=== PATIENT | male | born 1960 | race Caucasian/White ===

== ENCOUNTER 2017-12-15 01:44 | Inpatient (IN) | payer OTHER ==
[2017-12-15] MEDS ORDERED: NACL 0.9% 1000 ML 1,000 ML IV ONE (03:42)
[2017-12-15 04:10] LABS: Basophils % (Auto) 0.3 % (0.0-1.8); Eosinophils # (Auto) 0.1 K/mm3 (0.0-0.4); Eosinophils % (Auto) 0.7 % (0.0-4.3); Hematocrit 46.4 % (35.5-45.6); Hemoglobin 15.5 gm/dl (11.8-15.2); Lymphocytes # (Auto) 1.8 K/mm3 (1.2-5.4); Lymphocytes % (Auto) 16.8 % (13.4-35.0); Mean Corpuscular HGB Conc 33 % (32-34); Mean Corpuscular Hemoglobin 27 pg (28-32); Mean Corpuscular Volume 82 fl (84-94); Monocytes # (Auto) 0.5 K/mm3 (0.0-0.8); Monocytes % (Auto) 4.9 % (0.0-7.3); Platelet Count 206 K/mm3 (140-440); Red Blood Count 5.64 M/mm3 (3.65-5.03); Red Cell Distribution Width 15.4 % (13.2-15.2)
[2017-12-15 04:44] LABS: Alanine Aminotransferase 47 units/L (7-56); Albumin 4.5 g/dL (3.9-5); BUN/Creatinine Ratio 35; Blood Urea Nitrogen 21 mg/dL (9-20); Calcium 9.1 mg/dL (8.4-10.2); Hemolysis Index 3; Lipase 35 units/L (13-60)
[2017-12-15 07:45] LABS: Bilirubin,Urine NEG (Negative); Blood,Urine NEG (Negative); Color,Urine Yellow (Yellow); Mucus,Urine FEW /HPF; Protein,Urine <15 mg/dL mg/dL (Negative); Urobilinogen,Urine < 2.0 mg/dL (<2.0)
--- NOTE | 2017-12-15 09:09 | Emergency Department Report ---
ED Abdominal Pain HPI - General Chief Complaint: Abdominal Pain Stated Complaint: EMESIS/POSS FOOD POISON Time Seen by Provider: 12/15/17 09:07 Source: patient, family Mode of arrival: Ambulatory Limitations: No Limitations - History of Present Illness Initial Comments: Patient presents to emergency room with his reports that he ate supper about 6:55 PM last night and started having abdominal pain. Patient said his pain 10 out of 10 and crampy/sharp and reports that it feels like it is all over his demand, but more to his upper abdomen. He reports nausea and vomiting since 9:30 PM last night. Denies any fever. He states that he is unable to keep anything down and denies any diarrhea. Denies any blood in his stool or in his vomit. Denies taking any medication. Pain is worse with touch and this , and movements and no alleviating factors. MD Complaint: abdominal pain, other (nausea and vomiting) -: Last night Location: diffuse Radiation: none Migration to: no migration Severity: severe Severity scale (0 -10): 10 Quality: cramping, sharp Consistency: constant Improves With: nothing Worsens With: movement, other (palpation) Context: possible food poisoning Associated Symptoms: nausea, vomiting, anorexia. denies: diarrhea, fever, chills, constipation, dysuria, hematemesis, hematochezia, melena, hematuria, syncope Treatments Prior to Arrival: other (none) - Related Data Home Medications Medication Instructions Recorded Confirmed Last Taken Cyanocobalamin [Vitamin B-12] 1,000 mcg PO DAILY 12/15/17 12/15/17 12/14/17 Multivitamin [Multiple Vitamins] 1 each PO DAILY 12/15/17 12/15/17 12/14/17 Allergies Allergy/AdvReac Type Severity Reaction Status Date / Time No Known Allergies Allergy Verified 12/15/17 09:13 ED Review of Systems ROS: Stated complaint: EMESIS/POSS FOOD POISON Other details as noted in HPI Constitutional: denies: chills, fever Eyes: denies: eye pain, eye discharge, vision change ENT: denies: ear pain, throat pain, congestion Respiratory: denies: cough, shortness of breath, SOB with exertion, SOB at rest , wheezing Cardiovascular: denies: chest pain, palpitations, edema, syncope, paroxysmal nocturnal dyspnea Gastrointestinal: abdominal pain, nausea, vomiting. denies: diarrhea, constipation, hematemesis, melena, hematochezia Genitourinary: denies: urgency, dysuria, hematuria Musculoskeletal: denies: back pain, joint swelling, arthralgia, myalgia Skin: denies: rash, lesions Neurological: denies: headache, weakness, paresthesias ED Past Medical Hx - Past Medical History Previous Medical History?: Yes Additional medical history: MILD MN 3 TO 4 YEARS AGO. - Surgical History Past Surgical History?: No - Family History Family history: hypertension - Social History Smoking Status: Current Some Day Smoker Substance Use Type: None - Medications Home Medications: Home Medications Medication Instructions Recorded Confirmed Last Taken Type Cyanocobalamin [Vitamin B-12] 1,000 mcg PO DAILY 12/15/17 12/15/17 12/14/17 History Multivitamin [Multiple Vitamins] 1 each PO DAILY 12/15/17 12/15/17 12/14/17 History ED Physical Exam - General Limitations: No Limitations General appearance: alert, in no apparent distress - Head Head exam: Present: atraumatic, normocephalic, normal inspection - Eye Eye exam: Present: normal appearance, PERRL, EOMI Pupils: Present: normal accommodation - ENT ENT exam: Present: normal exam, normal orophraynx, mucous membranes moist, TM's normal bilaterally, normal external ear exam - Neck Neck exam: Present: normal inspection, full ROM. Absent: tenderness, lymphadenopathy - Respiratory Respiratory exam: Present: normal lung sounds bilaterally. Absent: respiratory distress, chest wall tenderness - Cardiovascular Cardiovascular Exam: Present: regular rate, normal rhythm, normal heart sounds. Absent: systolic murmur, diastolic murmur - GI/Abdominal GI/Abdominal exam: Present: soft, tenderness, guarding, normal bowel sounds. Absent: distended, rebound, rigid, organomegaly, mass, bruit, pulsatile mass - Extremities Exam Extremities exam: Present: normal inspection, full ROM, normal capillary refill , other (No cce. + 2 pulses in all extremities, no neurovascular compromise). Absent: tenderness, joint swelling, calf tenderness - Back Exam Back exam: Present: normal inspection, full ROM, other (ambulates without any difficulties). Absent: tenderness, CVA tenderness (R), CVA tenderness (L), muscle spasm, paraspinal tenderness, vertebral tenderness, rash noted - Neurological Exam Neurological exam: Present: alert, oriented X3, normal gait - Psychiatric Psychiatric exam: Present: normal affect, normal mood - Skin Skin exam: Present: warm, dry, intact, normal color. Absent: rash ED Course Vital Signs 12/15/17 12/15/17 12/15/17 03:39 10:07 10:21 Temperature 98.3 F Pulse Rate 60 Respiratory 20 17 16 Rate Blood Pressure 152/102 Blood Pressure [Right] O2 Sat by Pulse 99 Oximetry 12/15/17 12/15/17 10:27 13:15 Temperature 98.3 F 98.4 F Pulse Rate 63 66 Respiratory 16 16 Rate Blood Pressure Blood Pressure 133/84 136/80 [Right] O2 Sat by Pulse 98 100 Oximetry - Reevaluation(s) Reevaluation #1: 12/15/17 09:46 Patient was given IV fluid normal saline 1 L was infusing, morphine 4 mg IV, Zofran 8 mg IV. Initial abdominal exam with generalized tenderness with guarding but no after pain medication pain is located to right upper quadrant to mid quadrant and he said he is feeling better. Nausea has been relieved. Reevaluation #2: 12/15/17 15:06 Levaquin 750 mg IV and Flagyl 500 mg IV added to patient education regime. He started being transported to room 309 ED Medical Decision Making - Lab Data Result diagrams: 12/15/17 03:47 12/15/17 03:47 Lab Results 12/15/17 12/15/17 12/15/17 Range/Units 03:47 03:47 06:08 WBC 10.6 (4.5-11.0) K/mm3 RBC 5.64 H (3.65-5.03) M/mm3 Hgb 15.5 H (11.8-15.2) gm/dl Hct 46.4 H (35.5-45.6) % MCV 82 L (84-94) fl MCH 27 L (28-32) pg MCHC 33 (32-34) % RDW 15.4 H (13.2-15.2) % Plt Count 206 (140-440) K/mm3 Lymph % (Auto) 16.8 (13.4-35.0) % Pope % (Auto) 4.9 (0.0-7.3) % Eos % (Auto) 0.7 (0.0-4.3) % Baso % (Auto) 0.3 (0.0-1.8) % Lymph # 1.8 (1.2-5.4) K/mm3 Pope # 0.5 (0.0-0.8) K/mm3 Eos # 0.1 (0.0-0.4) K/mm3 Baso # 0.0 (0.0-0.1) K/mm3 Seg Neutrophils % 77.3 H (40.0-70.0) % Seg Neutrophils # 8.2 H (1.8-7.7) K/mm3 Sodium 140 (137-145) mmol/L Potassium 3.8 (3.6-5.0) mmol/L Chloride 99.8 (98-107) mmol/L Carbon Dioxide 26 (22-30) mmol/L Anion Gap 18 mmol/L BUN 21 H (9-20) mg/dL Creatinine 0.6 L (0.8-1.5) mg/dL Estimated GFR > 60 ml/min BUN/Creatinine Ratio 35 % Glucose 146 H (75-100) mg/dL Calcium 9.1 (8.4-10.2) mg/dL Total Bilirubin 0.70 (0.1-1.2) mg/dL AST 32 (5-40) units/L ALT 47 (7-56) units/L Alkaline Phosphatase 119 (35-129) units/L Total Protein 7.9 (6.3-8.2) g/dL Albumin 4.5 (3.9-5) g/dL Albumin/Globulin Ratio 1.3 % Lipase 35 (13-60) units/L Urine Color Yellow (Yellow) Urine Turbidity Clear (Clear) Urine pH 6.0 (5.0-7.0) Ur Specific [place] 1.019 (1.003-1.030) Urine Protein <15 mg/dl (Negative) mg/dL Urine Glucose (UA) Neg (Negative) mg/dL Urine Ketones Neg (Negative) mg/dL Urine Blood Neg (Negative) Urine Nitrite Neg (Negative) Urine Bilirubin Neg (Negative) Urine Urobilinogen < 2.0 (<2.0) mg/dL Ur Leukocyte Esterase Neg (Negative) Urine WBC (Auto) 1.0 (0.0-6.0) /HPF Urine RBC (Auto) 4.0 (0.0-6.0) /HPF Urine Mucus Few /HPF - Radiology Data Radiology results: report reviewed CT of the abdomen and pelvis with IV contrast dictated by radiologist and reported myself. Please see report below. Patient: KATIE FREGOSO MR#: [id number] : 1960 Acct:[id number] Age/Sex: 56 / M ADM Date: 12/15/17 Loc: ED Attending Dr: Ordering Physician: SHELLEY MARCOS Date of Service: 12/15/17 Procedure(s): CT abdomen pelvis w con Accession Number(s): [id number] cc: SHELLEY MARCOS CT ABDOMEN PELVIS WITH CONTRAST: HISTORY: Abdominal pain, nausea and vomiting. COMPARISON: none. TECHNIQUE: Helical CT in 1.25mm intervals following IV contrast. Sagittal and coronal reconstructions. FINDINGS: Lung bases: Mild hypoventilatory changes are noted in the lung bases. Normal heart size. Liver: Normal. Biliary system: The gallbladder appears mildly dilated but there is no evidence for calcified gallstones, wall thickening or surrounding fluid. The CBD and intrahepatic ducts are within normal limits. Correlate for biliary symptoms. Pancreas: Normal. Spleen: The spleen is normal size and contour. A 2.6 cm splenic hemangioma is suspected in the anterior tip of the spleen. Kidneys/ureters/bladder: Within normal limits. 2 cm simple cyst in the superior left kidney is noted. Adrenal glands: Normal. Aorta: Normal. Intestines: Normal. Appendix: Normal. Ascites: None. Adenopathy: None. Musculoskeletal: Mild thoracolumbar spondylosis. No fracture or suspicious bony lesion. IMPRESSION: Mildly dilated gallbladder as described above. Correlate for biliary symptoms. 2 cm left renal cyst. 2.6 cm splenic hemangioma. Transcribed By: TTR Dictated By: JUAN ALBERTO RUEDA JR, MD Electronically Authenticated By: JUAN ALBERTO RUEDA JR, MD Signed Date/Time: 12/15/17 1046 DD/ 1043 TD/TT: 12/15/17 1046 Patient: KATIE FREGOSO MR#: [id number] : 1960 Acct:[id number] Age/Sex: 56 / M ADM Date: 12/15/17 Loc: ED Attending Dr: Ordering Physician: SHELLEY MACROS Date of Service: 12/15/17 Procedure(s): US abdomen limited Accession Number(s): [id number] cc: SHELLEY MARCOS ULTRASOUND ABDOMEN LIMITED: TECHNIQUE: Transabdominal ultrasound with color Doppler interrogation. HISTORY: Abdominal pain, nausea and vomiting. COMPARISON: none. FINDINGS: LIVER: Normal. BILIARY SYSTEM: The gallbladder is mildly dilated and contains multiple small and large gallstones measuring up to 2.3 cm in diameter. A small amount of sludge is also identified. The gallbladder wall measures 2 mm. The CBD measures 4 mm. PANCREAS: Poorly visualized secondary to bowel gas. RIGHT KIDNEY: Normal. PROXIMAL AORTA: Normal. ASCITES: None. IMPRESSION: Cholelithiasis. The gallbladder appears mildly dilated. Early acute cholecystitis is difficult to exclude. Please correlate with the patient. Transcribed By: TTR Dictated By: JUAN ALBERTO RUEDA JR, MD Electronically Authenticated By: JUAN ALBERTO RUEDA JR, MD Signed Date/Time: 12/15/171205 DD/ 04 TD/TT: 12/15/171205 - Medical Decision Making This 56-year-old male presented to the emergency room with his family member reports that he has been having in nausea vomiting abdominal pain that feels like it is all over his abdomen but reports that its worst is upper abdomen. He denies any fever or chills. Denies any urinary burning and frequency urgency. This started after he ate. He said he cannot keep any thing down and his pain is 10/10. He is here to be examined. Patient was seen and examined by myself. Physical exam is normal except he has tenderness to palpate to upper abdomen mostly but he reports pain with palpate to mid abdomen and lower abdomen. He was noted to be having nausea and vomiting. Positive guardian without any rebound. Normal bowel sounds. Patient without signs of stable he is afebrile. He had CBC which shows normal white count and CMP stable. Urinalysis and lipase stable. Patient had CT scan of the abdomen and pelvis with IV contrast which was dictated by radiologist and report reviewed by myself. CT scan shows mildly dilated gallbladder, splenic hemangioma and left renal cyst otherwise normal. I discussed this case with Dr. Hamilton and he reviewed the labs and CT scan and ultrasound of right upper quadrant ordered and showed patient with gallstones and mild cholecystitis. Patient was given normal saline 1 L in the ER Patient abdominal pain relief with morphine 4 mg IV and his nausea relieved with Zofran 8 mg IV followed by another 4 mg IV but after reevaluation he still had tenderness that was pinpoint to right upper quadrant therefore ultrasound was ordered. This is dictated by radiologist. After speaking with attending physician, I spoke with surgeon Dr. Lopez who wanted patient to be admitted. She wanted hospitalist admit patient and to consult her. CT, ultrasound findings and laboratory findings as discussed with patient along with diagnosis and treatment plan and patient and family member agrees. It was decided the patient will be admitted to surgical floor and Dr. Lopez will see patient. I called Dr. Traore who agrees to admit patient. ED breech was started and patient started on D5 half-normal saline at 125 mL an hour. Patient transferred to room 39 in stable condition. Pain is much better after pain medication and nausea has resolved. - Differential Diagnosis bowel obstruction,GBD, pancreatic versus disease abd. mass, enteritis Critical care attestation.: If time is entered above; I have spent that time in minutes in the direct care of this critically ill patient, excluding procedure time. ED Disposition Clinical Impression: Biliary colic Cholecystitis with cholelithiasis Qualifiers: Cholelithiasis location: gallbladder and bile duct Cholecystitis acuity: acute Biliary obstruction: without biliary obstruction Qualified Code(s): K80.62 - Calculus of gallbladder and bile duct with acute cholecystitis without obstruction Abdominal pain Qualifiers: Abdominal location: upper abdomen, unspecified Qualified Code(s): R10.10 - Upper abdominal pain, unspecified Nausea and vomiting Qualifiers: Vomiting type: unspecified Vomiting Intractability: non-intractable Qualified Code(s): R11.2 - Nausea with vomiting, unspecified Disposition: DC-09 OP ADMIT IP TO THIS HOSP Is pt being admited?: Yes Does the pt Need Aspirin: No Condition: Stable
[2017-12-15] MEDS ORDERED: ZOFRAN IV ONE ×2 (09:13→12:56)
[2017-12-15] MEDS ORDERED: MORPHINE IV ONE (09:13)
[2017-12-15] MEDS ORDERED: NACL 0.9% 1000 ML 1,000 ML ONE (09:52)
--- NOTE | 2017-12-15 10:52 | Cat Scan Report ---
CT ABDOMEN PELVIS WITH CONTRAST: HISTORY: Abdominal pain, nausea and vomiting. COMPARISON: none. TECHNIQUE: Helical CT in 1.25mm intervals following IV contrast. Sagittal and coronal reconstructions. FINDINGS: Lung bases: Mild hypoventilatory changes are noted in the lung bases. Normal heart size. Liver: Normal. Biliary system: The gallbladder appears mildly dilated but there is no evidence for calcified gallstones, wall thickening or surrounding fluid. The CBD and intrahepatic ducts are within normal limits. Correlate for biliary symptoms. Pancreas: Normal. Spleen: The spleen is normal size and contour. A 2.6 cm splenic hemangioma is suspected in the anterior tip of the spleen. Kidneys/ureters/bladder: Within normal limits. 2 cm simple cyst in the superior left kidney is noted. Adrenal glands: Normal. Aorta: Normal. Intestines: Normal. Appendix: Normal. Ascites: None. Adenopathy: None. Musculoskeletal: Mild thoracolumbar spondylosis. No fracture or suspicious bony lesion. IMPRESSION: Mildly dilated gallbladder as described above. Correlate for biliary symptoms. 2 cm left renal cyst. 2.6 cm splenic hemangioma.
--- NOTE | 2017-12-15 12:13 | Ultrasound Report ---
ULTRASOUND ABDOMEN LIMITED: TECHNIQUE: Transabdominal ultrasound with color Doppler interrogation. HISTORY: Abdominal pain, nausea and vomiting. COMPARISON: none. FINDINGS: LIVER: Normal. BILIARY SYSTEM: The gallbladder is mildly dilated and contains multiple small and large gallstones measuring up to 2.3 cm in diameter. A small amount of sludge is also identified. The gallbladder wall measures 2 mm. The CBD measures 4 mm. PANCREAS: Poorly visualized secondary to bowel gas. RIGHT KIDNEY: Normal. PROXIMAL AORTA: Normal. ASCITES: None. IMPRESSION: Cholelithiasis. The gallbladder appears mildly dilated. Early acute cholecystitis is difficult to exclude. Please correlate with the patient.
[2017-12-15] MEDS ORDERED: LEVAQUIN 750MG/150ML 750 MG/150 ML BAG IV SCH (15:00)
[2017-12-15] MEDS ORDERED: LEVAQUIN 750MG/150ML 750 MG/150 ML BAG IV ONE (15:02)
[2017-12-15] MEDS ORDERED: FLAGYL 500 MG/100 ML 500 MG/100 ML BAG IV ONE (15:04)
[2017-12-15] MEDS: D5/0.45NS 1,000 ML IV SCH ×2 (16:26→21:08)
--- NOTE | 2017-12-15 16:26 | Consultation ---
History of Present Illness Consult date: 12/15/17 Chief complaint: abdominal pain - History of present illness History of present illness: 56 yo M with hx of AR 7 years ago presents to hospital with one day history of epigastric abdominal pain, n/v. The pain is localized and does not radiate. It has improved since being given IV pain meds in the ER. He states it is sharp and moderate in severity. He has had pain like this about 2 weeks ago which resolved on its own. He states he ate tripe for lunch and seafood for dinner and the pain started shortly thereafter. This was associated with nonbloody/ nonbilious emesis multiple times. No f/c, cp, sob, diarrhea. He works doing heavy lifting and denies chest pain with activity. He can walk long distance without pain. Past History Past Medical History: acute AR (7 years ago) Past Surgical History: Other (toe surgery) Social history: smoking (2-3 times per month). denies: alcohol abuse, prescription drug abuse Family history: no significant family history Medications and Allergies Allergies Allergy/AdvReac Type Severity Reaction Status Date / Time No Known Allergies Allergy Verified 12/15/17 09:13 Home Medications Medication Instructions Recorded Confirmed Last Taken Type Cyanocobalamin [Vitamin B-12] 1,000 mcg PO DAILY 12/15/17 12/15/17 12/14/17 History Multivitamin [Multiple Vitamins] 1 each PO DAILY 12/15/17 12/15/17 12/14/17 History Active Meds: Active Medications Dextrose/Sodium Chloride (D5/0.45ns) 1,000 mls @ 125 mls/hr IV DIRECT KARINE Levofloxacin/Dextrose (Levaquin 750mg/150ml) 750 mg in 150 mls @ 100 mls/hr IV ONCE ONE; Protocol Stop: 12/15/17 16:31 Morphine Sulfate (Morphine) 2 mg IV Q4H PRN PRN Reason: Pain, Moderate (4-6) Review of Systems All systems: negative (10 pt ROS performed and negative except for that listed in HPI) Exam Vital Signs Temp Pulse Resp BP Pulse Ox 98.3 F 60 20 152/102 99 12/15/17 03:39 12/15/17 03:39 12/15/17 03:39 12/15/17 03:39 12/15/17 03:39 Narrative exam: Gen: AAOx3. NAD ENT: no scleral icterus or conjunctival pallor CV: s1, S2+ Resp: Expiratory wheezes on left. Abd: soft, ND, mild TTP in epigastrum. No r/r/g Ext: no c/c/e Results - Labs 12/15/17 03:47 12/15/17 03:47 Abnormal lab results 12/15/17 12/15/17 Range/Units 03:47 03:47 RBC 5.64 H (3.65-5.03) M/mm3 Hgb 15.5 H (11.8-15.2) gm/dl Hct 46.4 H (35.5-45.6) % MCV 82 L (84-94) fl MCH 27 L (28-32) pg RDW 15.4 H (13.2-15.2) % Seg Neutrophils % 77.3 H (40.0-70.0) % Seg Neutrophils # 8.2 H (1.8-7.7) K/mm3 BUN 21 H (9-20) mg/dL Creatinine 0.6 L (0.8-1.5) mg/dL Glucose 146 H (75-100) mg/dL Diabetes panel 12/15/17 Range/Units 03:47 Sodium 140 (137-145) mmol/L Potassium 3.8 (3.6-5.0) mmol/L Chloride 99.8 (98-107) mmol/L Carbon Dioxide 26 (22-30) mmol/L BUN 21 H (9-20) mg/dL Creatinine 0.6 L (0.8-1.5) mg/dL Glucose 146 H (75-100) mg/dL Calcium 9.1 (8.4-10.2) mg/dL AST 32 (5-40) units/L ALT 47 (7-56) units/L Alkaline Phosphatase 119 (35-129) units/L Total Protein 7.9 (6.3-8.2) g/dL Albumin 4.5 (3.9-5) g/dL Calcium panel 12/15/17 Range/Units 03:47 Calcium 9.1 (8.4-10.2) mg/dL Albumin 4.5 (3.9-5) g/dL Pituitary panel 12/15/17 Range/Units 03:47 Sodium 140 (137-145) mmol/L Potassium 3.8 (3.6-5.0) mmol/L Chloride 99.8 (98-107) mmol/L Carbon Dioxide 26 (22-30) mmol/L BUN 21 H (9-20) mg/dL Creatinine 0.6 L (0.8-1.5) mg/dL Glucose 146 H (75-100) mg/dL Calcium 9.1 (8.4-10.2) mg/dL Adrenal panel 12/15/17 Range/Units 03:47 Sodium 140 (137-145) mmol/L Potassium 3.8 (3.6-5.0) mmol/L Chloride 99.8 (98-107) mmol/L Carbon Dioxide 26 (22-30) mmol/L BUN 21 H (9-20) mg/dL Creatinine 0.6 L (0.8-1.5) mg/dL Glucose 146 H (75-100) mg/dL Calcium 9.1 (8.4-10.2) mg/dL Total Bilirubin 0.70 (0.1-1.2) mg/dL AST 32 (5-40) units/L ALT 47 (7-56) units/L Alkaline Phosphatase 119 (35-129) units/L Total Protein 7.9 (6.3-8.2) g/dL Albumin 4.5 (3.9-5) g/dL - Imaging CT scan - abdomen: report reviewed, image reviewed CT scan - pelvis: report reviewed, image reviewed US - abdomen: report reviewed, image reviewed Assessment and Plan 56 yo M with 1. symptomatic cholelithiasis 2. dehydration Plan: 1. Clear liquids, NPO p MN 2. IVF 3. prn pain and nausea control 4. DVT ppx 5. OOB/ambulate 6. CXR preop 7. plan for cholecystectomy tomorrow 12/16/17. All risks, benefits, and alternatives to laparoscopic, possible open cholecystectomy, possible cholangiogram discussed with the patient and consent obtained. All questions answered. Thank you for this consultation, please call with questions or concerns.
--- NOTE | 2017-12-15 17:38 | Anesthesia Consultation ---
Anesthesia Consult and Med Hx Date of service: 12/16/17 - Airway Anesthetic Teeth Evaluation: Poor (multiple missing teeth; denies loose teeth), Dentures (upper) ROM Head & Neck: Adequate Mental/Hyoid Distance: Adequate Mallampati Class: Class III Intubation Access Assessment: Possibly Difficult - Pulmonary Exam CTA: Yes - Cardiac Exam Cardiac Exam: RRR - Pre-Operative Health Status ASA Pre-Surgery Classification: ASA2 Proposed Anesthetic Plan: General - Pulmonary Hx Smoking: Yes (3-4 cig per month) Hx Asthma: No Hx Respiratory Symptoms: No SOB: No - Cardiovascular System Hx Hypertension: No Hx Heart Attack/AMI: Yes (7-8yrs ago, no stents. Currently >4mets exercise tolerance) Hx Angina: No - Central Nervous System Hx Neuromuscular Disorder: No Hx Seizures: No CVA: No - Gastrointestinal Hx Gastroesophageal Reflux Disease: No - Endocrine Hx Renal Disease: No Hx Liver Disease: Yes (cholecystitis) Hx Insulin Dependent Diabetes: No Hx Non-Insulin Dependent Diabetes: No Hx Thyroid Disease: No - Hematic Hx Anemia: No
[2017-12-15] MEDS: MORPHINE IV PRN (20:31)
[2017-12-16] MEDS: MORPHINE IV PRN ×3 (00:28→18:17)
[2017-12-16] MEDS: D5/0.45NS 1,000 ML IV SCH ×2 (04:36→22:26)
[2017-12-16] MEDS ORDERED: ANCEF/STERILE WATER 2 GM/20 ML 2 GM/20 ML SYRINGE IV SCH (06:00)
[2017-12-16] MEDS ORDERED: FLAGYL 500 MG/100 ML 500 MG/100 ML BAG IV SCH (06:00)
--- NOTE | 2017-12-16 06:20 | Event Note ---
Date: 12/15/17 See H/p in reports Symptomatic Cholelithiasis For cholecystectomy in AM
--- NOTE | 2017-12-16 08:14 | History and Physical Report ---
CHIEF COMPLAINT: Acute abdominal pain for 2 weeks, intermittent in nature. HISTORY OF PRESENT ILLNESS: A 56-year-old male with history of coronary artery disease and CT 7 years ago, presents with 1-day history of severe abdominal pain located to the epigastric and right upper quadrant associated with nausea and vomiting a couple of times. The patient had similar pain about 2 weeks ago, which resolved on its own. Pain is sharp and intermittent, associated with nausea. The patient ate seafood for dinner and pain started shortly after. Nonbilious vomiting. No diarrhea. The pain is about 8 on a scale of 1-10. PAST MEDICAL HISTORY: Acute CT 7 years ago. PAST SURGICAL HISTORY: ____ surgery. SOCIAL HISTORY: Smokes occasionally. No alcohol or recreational drugs. FAMILY HISTORY: No significant family history. CURRENT MEDICATIONS: None. REVIEW OF SYSTEMS: Significant for right upper quadrant and epigastric pain associated with nausea and vomiting. Otherwise, review of systems negative. PHYSICAL EXAMINATION: GENERAL: Middle-aged male, cooperative during examination. VITAL SIGNS: Blood pressure is 116/76. Temperature is 98.5. Pulse is 73. Respirations are 17. HEENT: Unremarkable. Pupils equal and reactive. NECK: Supple, no lymphadenopathy, no thyromegaly. LUNGS: Clear to auscultation and percussion. Good air entry. CARDIOVASCULAR SYSTEM: S1, S2 heard. No gallop, no murmur, no rub. Apical impulse in left fifth intercostal space and midclavicular line. ABDOMEN: Right upper quadrant tenderness present. No guarding, no rigidity. Bowel sounds are normal. EXTREMITIES: Good pedal pulses. No pedal edema. CENTRAL NERVOUS SYSTEM: Alert and oriented x 4, nonfocal exam. SKIN: Normal. LABORATORY DATA: Significant for normal white count of 10,600, hemoglobin of 15.5, hematocrit of 46.4, platelet count of 206,000. Electrolytes are normal. BUN and creatinine is 21 and 0.6, glucose is 146. Urine is negative. LFTs are normal. Right upper quadrant ultrasound shows cholelithiasis, gallbladder appears mildly dilated, early acute cholecystitis. It is difficult to exclude. DIAGNOSTIC DATA: CT of the abdomen shows mildly dilated gallbladder, 2 cm left renal cyst and 2.[address] report shows no evidence for calcified gallstones, but wall thickening is present. ASSESSMENT AND PLAN: 1. Cholelithiasis, which is symptomatic. Surgical consult requested. The patient to get a cholecystectomy in the morning. Appreciate surgical consult. IV fluids. Keep the patient n.p.o. The patient is medically cleared for surgery. 2. Coronary artery disease, stable. No evidence for acute myocardial infarction. Aspirin after surgery. 3. Deep venous thrombosis prophylaxis, Lovenox 40 mg subcutaneous daily. JOB# [id number] VSEric/NTS
[2017-12-16] MEDS ORDERED: ceFAZolin 2 GM in NACL 0.9% 100 ML IV ONE ×2 (09:00→13:00)
[2017-12-16] MEDS ORDERED: LACTATED RINGERS 1,000 ML IV SCH (10:00)
[2017-12-16] MEDS ORDERED: VERSED IV NR (10:00)
--- NOTE | 2017-12-16 10:02 | XRay Report ---
AP CHEST: HISTORY: Preop AP view of the chest demonstrates a normal mediastinal and cardiac contour with clear lungs and normal bony and soft tissue structures. IMPRESSION: No acute cardiopulmonary process.
[2017-12-16] MEDS ORDERED: TORADOL ONE (11:00)
[2017-12-16] MEDS ORDERED: BLOXIVERZ ONE (11:00)
[2017-12-16] MEDS ORDERED: XYLOCAINE MPF 2% ONE (11:00)
[2017-12-16] MEDS ORDERED: ROBINUL ONE (11:00)
[2017-12-16] MEDS ORDERED: XYLOCAINE 1% 20 mL ONE (11:39)
[2017-12-16] MEDS ORDERED: MARCAINE 0.5% 30 ML INFILTRATI ONE (11:39)
[2017-12-16] MEDS ORDERED: SUBLIMAZE ONE (11:41)
[2017-12-16] MEDS ORDERED: ZOFRAN ONE (11:41)
[2017-12-16] MEDS ORDERED: ZEMURON IV ONE (11:41)
[2017-12-16] MEDS ORDERED: DECADRON ONE (11:41)
[2017-12-16] MEDS ORDERED: DIPRIVAN 10 MG/ML IV ONE (11:42)
[2017-12-16] MEDS ORDERED: VERSED ONE (13:27)
[2017-12-16] MEDS ORDERED: ZOFRAN IV PRN ×2 (13:29→18:05)
--- NOTE | 2017-12-16 13:30 | Post Anesthesia Evaluation ---
- Post Anesthesia Evaluation Airway Patent: Yes Stable Respiratory Function: Yes Nausea/Vomiting: No Temp > 96.8F: Yes Pain Manageable: Yes Adequeate Hydration: Yes Anesthesia Complications: No
--- NOTE | 2017-12-16 13:30 | Anesthesia Day of Surgery ---
Anesthesia Day of Surgery - Day of Surgery Patient Examined: Yes Patient H&P Reviewed: Yes Patient is NPO: Yes
[2017-12-16] MEDS ORDERED: PERCOCET 5/325 PO PRN (13:34)
--- NOTE | 2017-12-16 13:34 | Post Operative Note ---
Date of procedure: 12/16/17 Pre-op diagnosis: symptomatic cholelithiais Post-op diagnosis: other (chronic cholecystitis) Findings: bile filled gallbladder with thickened wall Procedure: laparoscopic cholecystectomy Anesthesia: YANIRAA, local Surgeon: SAMIRA NEWBY Estimated blood loss: minimal Pathology: list (gallbladder) Specimen disposition: to lab Condition: stable Disposition: PACU
[2017-12-16] MEDS ORDERED: NACL 0.9% IR ONE (13:50)
[2017-12-16] MEDS ORDERED: XYLOCAINE 1% 20 mL INFILTRATI ONE (13:50)
[2017-12-16] MEDS ORDERED: MARCAINE 0.5% INFILTRATI ONE (13:50)
[2017-12-16] MEDS: DILAUDID IV PRN ×3 (14:14→22:11)
--- NOTE | 2017-12-16 14:43 | Operative Report ---
Operative Report Operative Report: Date of procedure: 12/16/17 Pre-op diagnosis: symptomatic cholelithiais Post-op diagnosis: other (chronic cholecystitis) Findings: bile filled gallbladder with thickened wall Procedure: laparoscopic cholecystectomy Anesthesia: AMBERLY, local Surgeon: SAMIRA NEWBY Estimated blood loss: minimal Pathology: list (gallbladder) Specimen disposition: to lab Condition: stable Disposition: PACU HPI an indication: 56 yo M who presented to the hospital with complaints of severe epigastric quadrant abdominal pain. He was found to have cholelithiasis imaging. The patient was treated in the ER with pain medications but his pain persisted. He was admitted to the hospital with prn IV pain control, IVF. The patient was then consented for a laparoscopic possible open cholecystectomy. All risks, benefits, and alternatives to surgery were discussed and questions answered. Procedure in detail: The patient was identified in the preoperative area and taken back to the operating room, placed on the operating room table in supine position. After anesthesia was induced, the abdomen was prepped and draped in usual sterile fashion and timeout was performed. Local anesthetic was infiltrated into all of the skin incision sites. Using a 11 blade a supraumbilical incision was made and through this a Veress needle was used to insufflate the abdomen. The position of the veress needle was confirmed with the saline drop test and the abdomen was then insufflated to 15 mmHg. The veress needle was then removed and a 5 mm trocar placed using Optiview trocar. The abdomen was then inspected and there was no underlying injury to any of the abdominal contents. An additional 12 mm subxyphoid port, and 2, 5mm RUQ ports were then placed under direct visualization. The patient was then placed into reverse Trendelberg and tilted to the left. The gallbladder was visualized and was very distended and could not be grasped. The gallbladder was decompressed using a laparoscopic aspiration needle and a 60 cc syringe. Approximately 120cc of green bile was aspirated. The gallbladder was then grasped and lifted cephalad. The omental adhesions and peritoneum was taken down bluntly and using electrocautery with great care. The cystic duct and artery were then carefully dissected and the critical view obtained, and the cystic duct and artery were the only two structures seen entering the gallbladder. Four clips were then placed on the proximal aspect of the cystic duct and one clip distally, and 2 clips on the cystic artery proximally and one distal. The cystic duct and cystic artery were then transected in between the clips. The gallbladder was dissected off the liver bed using hook electrocautery. The gallbladder was placed into a Endo Catch bag and removed from the abdomen via the 12mm port. The gallbladder fossa was then inspected and there was no identifiable bleeding or bile leakage. Hemostasis was ensured. The clips on the cystic duct and artery were visualized and intact. The 12 mm port fascia was closed with 2, interrupted 0 Vicryl sutures using the Mauro Porter device. The remaining ports were removed under direct visualization. Skin incisions were closed with 4-0 Monocryl subcuticular stitches and skin glue. All skin incisions were once again infiltrated with local anesthetic. At the end case all sponge, instrument, sharp counts were correct 2. The patient was awoken from anesthesia, extubated, taken to PACU in stable condition.
--- NOTE | 2017-12-16 16:40 | Progress Note ---
Hospitalist Physical - Physical exam Narrative exam: GEN:Not in acute distress,obese HEENT: Normocephalic, atraumatic, Neck: supple, No JVD Lungs:Clear to auscultation bilaterally, no crackles, no wheeze Heart:S1 and S2 reg, no murmurs, rubs or gallop Abd:soft, NT, non-distended, Normal BS Ext: No edema, clubbing or cyanosis Neuro:Awake,alert,oriented x 3, no focal neurological signs Psych: Normal mood - Constitutional Vitals: Temp Pulse Resp BP Pulse Ox 98.5 F 56 L 16 116/76 100 12/16/17 14:58 12/16/17 14:58 12/16/17 14:58 12/16/17 14:58 12/16/17 14:58 Results - Labs CBC & Chem 7: 12/15/17 03:47 12/15/17 03:47 Labs: Laboratory Last Values WBC 10.6 K/mm3 (4.5-11.0) 12/15/17 03:47 RBC 5.64 M/mm3 (3.65-5.03) H 12/15/17 03:47 Hgb 15.5 gm/dl (11.8-15.2) H 12/15/17 03:47 Hct 46.4 % (35.5-45.6) H 12/15/17 03:47 MCV 82 fl (84-94) L 12/15/17 03:47 MCH 27 pg (28-32) L 12/15/17 03:47 MCHC 33 % (32-34) 12/15/17 03:47 RDW 15.4 % (13.2-15.2) H 12/15/17 03:47 Plt Count 206 K/mm3 (140-440) 12/15/17 03:47 Lymph % (Auto) 16.8 % (13.4-35.0) 12/15/17 03:47 [place] % (Auto) 4.9 % (0.0-7.3) 12/15/17 03:47 Eos % (Auto) 0.7 % (0.0-4.3) 12/15/17 03:47 Baso % (Auto) 0.3 % (0.0-1.8) 12/15/17 03:47 Lymph # 1.8 K/mm3 (1.2-5.4) 12/15/17 03:47 [place] # 0.5 K/mm3 (0.0-0.8) 12/15/17 03:47 Eos # 0.1 K/mm3 (0.0-0.4) 12/15/17 03:47 Baso # 0.0 K/mm3 (0.0-0.1) 12/15/17 03:47 Seg Neutrophils % 77.3 % (40.0-70.0) H 12/15/17 03:47 Seg Neutrophils # 8.2 K/mm3 (1.8-7.7) H 12/15/17 03:47 Sodium 140 mmol/L (137-145) 12/15/17 03:47 Potassium 3.8 mmol/L (3.6-5.0) 12/15/17 03:47 Chloride 99.8 mmol/L (98-107) 12/15/17 03:47 Carbon Dioxide 26 mmol/L (22-30) 12/15/17 03:47 Anion Gap 18 mmol/L 12/15/17 03:47 BUN 21 mg/dL (9-20) H 12/15/17 03:47 Creatinine 0.6 mg/dL (0.8-1.5) L 12/15/17 03:47 Estimated GFR > 60 ml/min 12/15/17 03:47 BUN/Creatinine Ratio 35 % 12/15/17 03:47 Glucose 146 mg/dL (75-100) H 12/15/17 03:47 Calcium 9.1 mg/dL (8.4-10.2) 12/15/17 03:47 Total Bilirubin 0.70 mg/dL (0.1-1.2) 12/15/17 03:47 AST 32 units/L (5-40) 12/15/17 03:47 ALT 47 units/L (7-56) 12/15/17 03:47 Alkaline Phosphatase 119 units/L (35-129) 12/15/17 03:47 Total Protein 7.9 g/dL (6.3-8.2) 12/15/17 03:47 Albumin 4.5 g/dL (3.9-5) 12/15/17 03:47 Albumin/Globulin Ratio 1.3 % 12/15/17 03:47 Lipase 35 units/L (13-60) 12/15/17 03:47 Urine Color Yellow (Yellow) 12/15/17 06:08 Urine Turbidity Clear (Clear) 12/15/17 06:08 Urine pH 6.0 (5.0-7.0) 12/15/17 06:08 Ur Specific [place] 1.019 (1.003-1.030) 12/15/17 06:08 Urine Protein <15 mg/dl mg/dL (Negative) 12/15/17 06:08 Urine Glucose (UA) Neg mg/dL (Negative) 12/15/17 06:08 Urine Ketones Neg mg/dL (Negative) 12/15/17 06:08 Urine Blood Neg (Negative) 12/15/17 06:08 Urine Nitrite Neg (Negative) 12/15/17 06:08 Urine Bilirubin Neg (Negative) 12/15/17 06:08 Urine Urobilinogen < 2.0 mg/dL (<2.0) 12/15/17 06:08 Ur Leukocyte Esterase Neg (Negative) 12/15/17 06:08 Urine WBC (Auto) 1.0 /HPF (0.0-6.0) 12/15/17 06:08 Urine RBC (Auto) 4.0 /HPF (0.0-6.0) 12/15/17 06:08 Urine Mucus Few /HPF 12/15/17 06:08
--- NOTE | 2017-12-16 16:44 | Discharge Summary ---
<HOWARD NAGEL - Last Filed: 12/16/17 16:40> Providers - Providers Date of Admission: 12/15/17 12:52 Date of discharge: 12/16/17 Attending physician: HOWARD NAGEL 12/15/17 12:57 Consult to Physician [CONS] Stat Comment: Consulting Provider: SAMIRA NEWBY Physician Instructions: Reason For Exam: gallbladder disease Primary care physician: TESTING ENGINEER Hospitalization Condition: Fair Disposition: DC-01 TO HOME OR SELFCARE Core Measure Documentation - Palliative Care Palliative Care/ Comfort Measures: Not Applicable - Core Measures Any of the following diagnoses?: none Exam - Constitutional Vitals: Temp Pulse Resp BP Pulse Ox 98.5 F 56 L 16 116/76 100 12/16/17 14:58 12/16/17 14:58 12/16/17 14:58 12/16/17 14:58 12/16/17 14:58 Plan Activity: advance as tolerated Diet: other (Clear liquid, advance as tolerated over few days) Additional Instructions: 1.Follow up with PCP in 1 week. 2.Follow up with Dr. Newby in 1 week Follow up with: PRIMARY CARE, [Primary Care Provider] - 3-5 Days SAMIRA NEWBY DO [Staff Physician] - 14 Days Prescriptions: oxyCODONE /ACETAMINOPHEN [Percocet 5/325 mg] 1 tab PO Q6H PRN #15 tablet PRN Reason: Pain, Moderate (4-6) <SAMIRA NEWBY - Last Filed: 12/17/17 09:34> Providers - Providers Date of Admission: 12/15/17 12:52 Attending physician: HOWARD NAGEL 12/15/17 12:57 Consult to Physician [CONS] Stat Comment: Consulting Provider: SAMIRA NEWBY Physician Instructions: Reason For Exam: gallbladder disease Primary care physician: TESTING ENGINEER Exam - Constitutional Vitals: Temp Pulse Resp BP Pulse Ox 98.2 F 64 18 135/81 97 12/17/17 08:00 12/17/17 08:15 12/17/17 08:00 12/17/17 08:00 12/17/17 08:15 Plan Activity: other (no driving if taking narcotic pain meds. no heavy lifting more than 20 lbs for the next 2 wks) Diet: other Wound: open to air, other (may shower, pat incisions dry, do not scrub. do not submerge incisions in water.)
[2017-12-17] MEDS: MORPHINE IV PRN ×2 (03:23→08:25)
--- NOTE | 2017-12-17 10:06 | Event Note ---
Date: 12/17/17 Patient stable to go home today
--- NOTE | 2017-12-17 11:56 | Progress Note ---
Assessment and Plan 56 yo M s/p laparoscopic cholecystectomy POD 1 Plan: 1. reg diet 2. dc IVF 3. prn PO pain control 4. OOB/ambulate 5. IS/pulm toilet 6. ok to dc from surgery standpoint. Pt given verbal and written dc instructions and told to call and make an appointment to follow up in surgery office in 2 weeks. Thank you. Please call with questions or concerns. Subjective Date of service: 12/17/17 Narrative: Pt seen and examined. c/o abdominal soreness. 1 episode of emesis overnight. No n/v since then. He ate all of his regular breakfast. NO f/c, cp, sob. Objective Vital Signs - 12hr 12/17/17 12/17/17 12/17/17 01:10 03:23 06:02 Temperature 98.6 F 98.2 F Pulse Rate 76 68 Respiratory 17 17 17 Rate Blood Pressure 123/69 114/69 [Right] O2 Sat by Pulse 97 97 Oximetry 12/17/17 12/17/17 08:00 08:15 Temperature 98.2 F Pulse Rate 69 64 Respiratory 18 Rate Blood Pressure 135/81 [Right] O2 Sat by Pulse 97 Oximetry - General physical appearance Narrative Exam: Gen: AAOx3. NAD CV: S1, S1+ Resp: even and unlabored Abd: soft, ND, + TTP near incisions. Incisions c/d/i Ext: no c/c/e - Labs 12/15/17 03:47 12/15/17 03:47
[2017-12-17 13:58] VITALS: BP 129/70
== END 2017-12-17 12:47 | disposition home or self-care (01) | DRG 419 ==
LOC: ED 01:44 → 3B-SURG 12:52
PROVIDERS: ADMIT Internal Medicine; ATTEND Internal Medicine
PROC: 0FT44ZZ Resection of Gallbladder, Percutaneous Endoscopic Approach (ICD-10-PCS; principal; 2017-12-16)
PROC: 0F944ZZ Drainage of Gallbladder, Percutaneous Endoscopic Approach (ICD-10-PCS; 2017-12-16)
DX: K80.62 Calculus of gallbladder and bile duct with acute cholecystitis without obstruction (principal); I25.10 Atherosclerotic heart disease of native coronary artery without angina pectoris; E86.0 Dehydration; I25.2 Old myocardial infarction; Z72.0 Tobacco use
CPT/HCPCS: 36415; 71045; 74177; 76705; 80053; 81001; 83690; 85025; 88304; J0690; J1100; J1170; J1885; J1956; J2250; J2270; J2405; J2704; J2710; J3010; J7030; J7120; Q9967

== ENCOUNTER 2018-07-07 09:33 | Emergency (ER) | payer OTHER ==
--- NOTE | 2018-07-07 10:22 | Emergency Department Report ---
HPI - General Chief Complaint: Allergic Reaction Time Seen by Provider: 07/07/18 10:16 - HPI HPI: This is a 57-year-old male with no prior medical history who presents to ED complaining of present with itching, red, generalized rash all over his body that started yesterday. Patient states that he took Benadryl which helped a little bit yesterday but this morning after taking Benadryl had no relief. He denies any difficulty breathing, throat swelling. Patient states he is not aware of what he can to contact with. He denies this shows sinus nausea vomiting ED Past Medical Hx - Past Medical History Hx Hypertension: No Hx Heart Attack/AMI: Yes (7-8yrs ago, no stents. Currently >4mets exercise tolerance) Hx Liver Disease: No Hx Renal Disease: No Hx Seizures: No Hx Asthma: No Additional medical history: MILD DE 3 TO 4 YEARS AGO. - Surgical History Hx Cholecystectomy: Yes - Social History Smoking Status: Former Smoker Substance Use Type: None - Medications Home Medications: Home Medications Medication Instructions Recorded Confirmed Last Taken Type Cyanocobalamin [Vitamin B-12] 1,000 mcg PO DAILY 12/15/17 12/15/17 12/14/17 History Multivitamin [Multiple Vitamins] 1 each PO DAILY 12/15/17 12/15/17 12/14/17 History oxyCODONE /ACETAMINOPHEN [Percocet 1 tab PO Q6H PRN #15 tablet 12/16/17 Unknown Rx 5/325 mg] Promethazine [Phenergan TAB] 25 mg PO Q6HR PRN #20 tab 12/17/17 Unknown Rx hydrOXYzine HCL [Atarax] 25 mg PO Q6HR PRN #20 tablet 07/07/18 Unknown Rx methylPREDNISolone [Medrol] 4 mg PO DAILY 4 Days #1 tab.ds.pk 07/07/18 Unknown Rx ED Review of Systems ROS: Stated complaint: ALLERGIC REACTION Other details as noted in HPI Comment: All other systems reviewed and negative Physical Exam - Physical Exam Vital Signs: Vital Signs 07/07/18 09:42 Temperature 97.6 F Pulse Rate 73 Respiratory 18 Rate Blood Pressure 142/85 O2 Sat by Pulse 99 Oximetry Physical Exam: GENERAL: Alert and oriented x3, no apparent distress, Normal Gait, atraumatic. MOUTH:Mouth is well hydrated and without lesions. Tonsils nonerythematous or swollen, Uvula midline, Tongue not elevated. Mucous membranes are moist. Posterior pharynx clear, no exudate or lesions. Patent airways. NECK: Supple. Non edematous, LUNGS: Symetrical with respiration, No wheezing, no rales or crackles, CTAB. HEART: S1, S2 present, regular rate and rhythm NEUROLOGIC: The patient is cooperative with no focal neurologic deficits. SKIN: Warm and dry, erythematous, generalized hives seen on face, abdomen, hands, macular papular lesions, No ulceration or induration present. ED Course Vital Signs 07/07/18 09:42 Temperature 97.6 F Pulse Rate 73 Respiratory 18 Rate Blood Pressure 142/85 O2 Sat by Pulse 99 Oximetry ED Medical Decision Making - Medical Decision Making 57-year-old male presumably generalized rash most likely from allergic reaction of some sort. Patient is in no respiratory distress. Patient received Solu Medrol in ED. Patient took Benadryl prior to arrival so none was given. Discussed follow-up with primary care physician. Patient will be sent to short dose of prednisone as black antihistamine. Critical care attestation.: If time is entered above; I have spent that time in minutes in the direct care of this critically ill patient, excluding procedure time. ED Disposition Clinical Impression: Allergic reaction, Hives, Rash and nonspecific skin eruption Disposition: - TO HOME OR SELFCARE Is pt being admited?: No Does the pt Need Aspirin: No Condition: Stable Instructions: Acute Rash (ED), Contact Dermatitis (ED) Additional Instructions: Make sure to follow up with the primary care physician as discussed. Take all your medications as you've been prescribed. If you have any worsening symptoms or develop new symptoms please return to ED immediately. Prescriptions: hydrOXYzine HCL [Atarax] 25 mg PO Q6HR PRN #20 tablet PRN Reason: Itching methylPREDNISolone [Medrol] 4 mg PO DAILY 4 Days #1 tab.ds.pk Referrals: ANTONIO DURANT MD [Primary Care Provider] - 3-5 Days Forms: Accompanied Note, Work/School Release Form(ED) Time of Disposition: 10:40
[2018-07-07] MEDS ORDERED: SOLU-Medrol IM ONE (10:34)
[2018-07-07] MEDS ORDERED: ZOFRAN ODT PO ONE (10:58)
[2018-07-07] MEDS ORDERED: ZOFRAN ODT ONE (11:01)
[2018-07-07 11:08] VITALS: BP 110/68
== END 2018-07-07 11:27 | disposition home or self-care (01) ==
LOC: ED 09:33
DX: T78.40XA Allergy, unspecified, initial encounter (principal); I25.2 Old myocardial infarction; Z90.49 Acquired absence of other specified parts of digestive tract; Z87.891 Personal history of nicotine dependence; Z79.899 Other long term (current) drug therapy; X58.XXXA Exposure to other specified factors, initial encounter
CPT/HCPCS: 96372; 99282; J2930; Q0162

== ENCOUNTER 2018-07-07 12:31 | Emergency (ER) | payer OTHER ==
[2018-07-07] MEDS ORDERED: PEPCID IV ONE (12:47)
[2018-07-07] MEDS ORDERED: BENADRYL IV ONE (12:47)
[2018-07-07 12:48] VITALS: BP 175/130
[2018-07-07 13:26] LABS: Basophils % (Auto) 0.2 % (0.0-1.8); Eosinophils % (Auto) 0.1 % (0.0-4.3); Hematocrit 46.2 % (35.5-45.6); Hemoglobin 15.7 gm/dl (11.8-15.2); Lymphocytes # (Auto) 1.4 K/mm3 (1.2-5.4); Mean Corpuscular HGB Conc 34 % (32-34); Mean Corpuscular Volume 82 fl (84-94); Monocytes # (Auto) 0.3 K/mm3 (0.0-0.8); Monocytes % (Auto) 3.6 % (0.0-7.3); Platelet Count 211 K/mm3 (140-440); Red Blood Count 5.65 M/mm3 (3.65-5.03); Red Cell Distribution Width 15.4 % (13.2-15.2)
[2018-07-07 13:47] LABS: BUN/Creatinine Ratio 29; Blood Urea Nitrogen 20 mg/dL (9-20); Calcium 8.9 mg/dL (8.4-10.2); Hemolysis Index 11
--- NOTE | 2018-07-07 14:49 | Emergency Department Report ---
ED General Adult HPI - General Chief complaint: Allergic Reaction Stated complaint: ALLERGIC REACTION Time Seen by Provider: 07/07/18 12:45 Source: patient Mode of arrival: Ambulatory Limitations: No Limitations - History of Present Illness Initial comments: 7-year-old male was seen in the acute care clinic earlier today. He was given steroids. He tells me that his blood pressure went down he felt somewhat weak and dizzy but this passed and he was able to be discharged. He was not hypotensive. Blood pressure is recorded to a rea of 110/68. The patient arrived back after having increased rash. His initial blood pressure was elevated. He has no history of hypertension. Upon my counter I repeated his blood pressure and it was within the normal range (120/68). Patient denied any swelling of his lips or oropharynx. He's had no difficulty in breathing. He does not feel weak or dizzy now. The or girlfriend states that she thinks that he is having an allergic reaction to a new jacket of unknown fabric that was tied around his neck. She states that he had more hives around the area of contact. -: Gradual Location: neck Severity scale (0 -10): 0 Quality: other Consistency: constant Improves with: none Worsens with: none Associated Symptoms: denies other symptoms - Related Data Home Medications Medication Instructions Recorded Confirmed Last Taken Cyanocobalamin [Vitamin B-12] 1,000 mcg PO DAILY 12/15/17 12/15/17 12/14/17 Multivitamin [Multiple Vitamins] 1 each PO DAILY 12/15/17 12/15/17 12/14/17 Previous Rx's Medication Instructions Recorded Last Taken Type oxyCODONE /ACETAMINOPHEN [Percocet 1 tab PO Q6H PRN #15 tablet 12/16/17 Unknown Rx 5/325 mg] Promethazine [Phenergan TAB] 25 mg PO Q6HR PRN #20 tab 12/17/17 Unknown Rx hydrOXYzine HCL [Atarax] 25 mg PO Q6HR PRN #20 tablet 07/07/18 Unknown Rx methylPREDNISolone [Medrol] 4 mg PO DAILY 4 Days #1 tab.ds.pk 07/07/18 Unknown Rx Allergies Allergy/AdvReac Type Severity Reaction Status Date / Time No Known Allergies Allergy Verified 12/15/17 09:13 ED Review of Systems ROS: Stated complaint: ALLERGIC REACTION Other details as noted in HPI Constitutional: denies: chills, fever Eyes: denies: eye pain, eye discharge, vision change ENT: denies: ear pain, throat pain Respiratory: denies: cough, shortness of breath, wheezing Cardiovascular: denies: chest pain, palpitations Endocrine: no symptoms reported Gastrointestinal: denies: abdominal pain, nausea, diarrhea Genitourinary: denies: urgency, dysuria Musculoskeletal: denies: back pain, joint swelling, arthralgia Skin: as per HPI (diffuse urticaria but predominating the neck), rash, pruritus. denies: lesions Neurological: denies: headache, weakness, paresthesias Psychiatric: denies: anxiety, depression Hematological/Lymphatic: denies: easy bleeding, easy bruising ED Past Medical Hx - Past Medical History Hx Hypertension: No Hx Heart Attack/AMI: Yes (7-8yrs ago, no stents. Currently >4mets exercise tolerance) Hx Liver Disease: No Hx Renal Disease: No Hx Seizures: No Hx Asthma: No Additional medical history: MILD [place] 3 TO 4 YEARS AGO. - Surgical History Hx Cholecystectomy: Yes - Social History Smoking Status: Never Smoker Substance Use Type: None - Medications Home Medications: Home Medications Medication Instructions Recorded Confirmed Last Taken Type Cyanocobalamin [Vitamin B-12] 1,000 mcg PO DAILY 12/15/17 12/15/17 12/14/17 History Multivitamin [Multiple Vitamins] 1 each PO DAILY 12/15/17 12/15/17 12/14/17 History oxyCODONE /ACETAMINOPHEN [Percocet 1 tab PO Q6H PRN #15 tablet 12/16/17 Unknown Rx 5/325 mg] Promethazine [Phenergan TAB] 25 mg PO Q6HR PRN #20 tab 12/17/17 Unknown Rx hydrOXYzine HCL [Atarax] 25 mg PO Q6HR PRN #20 tablet 07/07/18 Unknown Rx methylPREDNISolone [Medrol] 4 mg PO DAILY 4 Days #1 tab.ds.pk 07/07/18 Unknown Rx ED Physical Exam - General Limitations: No Limitations General appearance: alert, in no apparent distress - Head Head exam: Present: atraumatic, normocephalic - Eye Eye exam: Present: normal appearance. Absent: scleral icterus - ENT ENT exam: Present: mucous membranes moist - Neck Neck exam: Present: normal inspection. Absent: tenderness, meningismus - Respiratory Respiratory exam: Present: normal lung sounds bilaterally. Absent: respiratory distress - Cardiovascular Cardiovascular Exam: Present: regular rate, normal rhythm. Absent: systolic murmur, diastolic murmur, rubs, gallop - GI/Abdominal GI/Abdominal exam: Present: soft, normal bowel sounds. Absent: distended, tenderness, guarding, rebound, rigid - Rectal Rectal exam: Present: deferred - Extremities Exam Extremities exam: Present: normal inspection - Back Exam Back exam: Present: normal inspection - Neurological Exam Neurological exam: Present: alert, oriented X3, CN II-XII intact. Absent: motor sensory deficit - Psychiatric Psychiatric exam: Present: normal affect, normal mood - Skin Skin exam: Present: warm, dry, intact, urticaria (diffuse). Absent: rash ED Course Vital Signs 07/07/18 07/07/18 07/07/18 12:42 12:45 14:02 Temperature 98.0 F Blood Pressure 175/130 O2 Sat by Pulse 99 99 Oximetry - Reevaluation(s) Reevaluation #1: Patient was given Benadryl and famotidine. His hives did improve. He never developed L of any hypotension or airway problem. He was discharged in improved condition. 07/07/18 14:59 ED Medical Decision Making - Lab Data Result diagrams: 07/07/18 13:11 07/07/18 13:11 Laboratory Results - last 24 hr 07/07/18 07/07/18 13:11 13:11 WBC 8.7 RBC 5.65 H Hgb 15.7 H Hct 46.2 H MCV 82 L MCH 28 MCHC 34 RDW 15.4 H Plt Count 211 Lymph % (Auto) 16.0 Sharp % (Auto) 3.6 Eos % (Auto) 0.1 Baso % (Auto) 0.2 Lymph # 1.4 Sharp # 0.3 Eos # 0.0 Baso # 0.0 Seg Neutrophils % 80.1 H Seg Neutrophils # 7.0 Sodium 136 L Potassium 4.2 Chloride 100.9 Carbon Dioxide 22 Anion Gap 17 BUN 20 Creatinine 0.7 L Estimated GFR > 60 BUN/Creatinine Ratio 29 Glucose 114 H Calcium 8.9 Critical care attestation.: If time is entered above; I have spent that time in minutes in the direct care of this critically ill patient, excluding procedure time. ED Disposition Clinical Impression: Urticaria Disposition: DC-01 TO HOME OR SELFCARE Is pt being admited?: No Does the pt Need Aspirin: No Condition: Stable Instructions: Urticaria (ED) Additional Instructions: Continue medicines as previously prescribed. Avoid further contact with the jacket. Pepcid 20 mg twice a day for the next 3-5 days. Return as needed worsening rash specifically if there is any significant weakness or swelling around the lips and tongue face or difficulty in breathing. Referrals: PRIMARY CARE, [Primary Care Provider] - 2-3 Days Time of Disposition: 14:59
== END 2018-07-07 15:13 | disposition home or self-care (01) ==
LOC: ED 12:31
DX: R42 Dizziness and giddiness (principal); R03.0 Elevated blood-pressure reading, without diagnosis of hypertension; R21 Rash and other nonspecific skin eruption; I25.2 Old myocardial infarction; Z79.899 Other long term (current) drug therapy; Z90.49 Acquired absence of other specified parts of digestive tract
CPT/HCPCS: 36415; 80048; 85025; 96374; 96375; 99283; J1200

== ENCOUNTER 2018-07-07 21:23 | Emergency (ER) | payer OTHER ==
--- NOTE | 2018-07-07 21:43 | Emergency Department Report ---
Blank Doc - Documentation Documentation: This is a 57 y.o. male that presents with hives. Patient seen in this ER twice today. Spouse states they left here with improved rash. They filled prescriptions and rash returned. Patient reports pruritus. Patient denies SOB, chest pain, dyspenia, and tongue swelling. Fast track for further evaluation.
--- NOTE | 2018-07-08 01:05 | Emergency Department Report ---
HPI - General Chief Complaint: Allergic Reaction Time Seen by Provider: 07/07/18 21:39 - HPI HPI: 57-year-old male presents to the emergency department for the third time today for an allergic reaction. Patient has been having hives throughout his body c ausing some itching. Earlier today he had some itchiness and/or scratching sensation to the throat. Otherwise he has denied any swelling of the lips, tongue, throat, shortness of breath, problems swallowing or any other reaction besides the hives. Both he and his significant other said that there have been no new medications, foods, clothing, soaps, detergents, etc. He does have a past medical history of coronary artery disease. He has prescriptions for hydroxyzine, steroids and Pepcid but has not taken any new medications since the last time he was in the emergency department earlier today. ED Past Medical Hx - Past Medical History Previous Medical History?: Yes Hx Hypertension: No Hx Heart Attack/AMI: Yes (7-8yrs ago, no stents. Currently >4mets exercise tolerance) Hx Liver Disease: No Hx Renal Disease: No Hx Seizures: No Hx Asthma: No Additional medical history: MILD [place] 3 TO 4 YEARS AGO. - Surgical History Past Surgical History?: Yes Hx Cholecystectomy: Yes - Social History Smoking Status: Never Smoker Substance Use Type: None - Medications Home Medications: Home Medications Medication Instructions Recorded Confirmed Last Taken Type RX: Cyanocobalamin [Vitamin B-12] 1,000 mcg PO DAILY 12/15/17 12/15/17 12/14/17 History RX: Multivitamin [Multiple 1 each PO DAILY 12/15/17 12/15/17 12/14/17 History Vitamins] RX: oxyCODONE /ACETAMINOPHEN 1 tab PO Q6H PRN #15 tablet 12/16/17 Unknown Rx [Percocet 5/325 mg] RX: Promethazine [Phenergan TAB] 25 mg PO Q6HR PRN #20 tab 12/17/17 Unknown Rx hydrOXYzine HCL [Atarax] 25 mg PO Q6HR PRN #20 tablet 07/07/18 Unknown Rx methylPREDNISolone [Medrol] 4 mg PO DAILY 4 Days #1 tab.ds.pk 07/07/18 Unknown Rx ED Review of Systems ROS: Stated complaint: ALLERGIC REACTION Other details as noted in HPI Comment: All other systems reviewed and negative Constitutional: denies: chills, fever Eyes: denies: eye pain, vision change ENT: denies: ear pain, throat pain Respiratory: denies: cough, shortness of breath Cardiovascular: denies: chest pain, palpitations Gastrointestinal: denies: abdominal pain, vomiting Genitourinary: denies: dysuria, discharge Musculoskeletal: denies: back pain, arthralgia Skin: rash, pruritus Neurological: denies: headache, weakness Physical Exam - Physical Exam Vital Signs: Vital Signs 07/07/18 21:40 Temperature 98.9 F Pulse Rate 76 Respiratory 18 Rate Blood Pressure 142/82 O2 Sat by Pulse 99 Oximetry Physical Exam: GENERAL: The patient is well-developed well-nourished. HEENT: Normocephalic. Atraumatic. Patient has moist mucous membranes. Oropharynx is clear. Mallampati 1 EYES: Extraocular motions are intact. NECK: Supple. Trachea is midline. CHEST/LUNGS: Clear to auscultation. There is no respiratory distress noted. HEART/CARDIOVASCULAR: Regular. There is no tachycardia. There is no obvious murmur. ABDOMEN: Abdomen is soft, nontender. Patient has normal bowel sounds. There is no abdominal distention. SKIN: There are a few scattered urticarial lesions. NEURO: The patient is awake, alert, and oriented. The patient is cooperative. The patient has no focal neurologic deficits. The patient has normal speech. MUSCULOSKELETAL: There is no tenderness or deformity. There is no evidence of acute injury. ED Course Vital Signs 07/07/18 21:40 Temperature 98.9 F Pulse Rate 76 Respiratory 18 Rate Blood Pressure 142/82 O2 Sat by Pulse 99 Oximetry ED Medical Decision Making - Medical Decision Making Patient presents to the emergency department with a return of his urticaria. They showed me a cell phone picture of what his skin looked like when he came into triage for this third visit and he does have multiple urticaria that are generalized. However he has no signs of any angioedema, anaphylaxis. By the time he got to the main emergency department, the urticaria has improved significantly without any further treatment thus far. He does have a prescription filled for hydroxyzine and steroids with the plan to start the steroid pack tomorrow morning. Vital signs stable throughout his ED course. He appears stable for discharge home. I explained that the allergen is unknown and he may need to see an powertrain control systems engineer for scratch testing. I also explained that allergies can wax and wane. Return with any signs of any angioedema or anaphylaxis, or with any acute distress. Critical Care Time: No Critical care attestation.: If time is entered above; I have spent that time in minutes in the direct care of this critically ill patient, excluding procedure time. ED Disposition Clinical Impression: Hives Allergic reaction Qualifiers: Encounter type: initial encounter Qualified Code(s): T78.40XA - Allergy, unspecified, initial encounter Disposition: TO HOME OR SELFCARE Is pt being admited?: No Condition: Stable Instructions: Urticaria (ED) Additional Instructions: Please follow up with a primary care physician in the next few days. Return to the emergency Department with any worsening of your symptoms, swelling of the tongue/throat/lips, shortness of breath, difficulty swallowing, or with any acute distress. Take the steroids, hydroxyzine and Pepcid as prescribed. Referrals: CONSTANZA VIVAR MD [Staff Physician] - 2-3 Days [facility] [Outside] - 2-3 Days Time of Disposition: :07
== END 2018-07-08 01:28 | disposition home or self-care (01) ==
LOC: ED 21:23
CPT/HCPCS: 99282